=== PATIENT | male | born 1980 | race African-American/Black ===

== ENCOUNTER 2017-07-11 20:05 | Emergency (ER) | payer SELFPAY ==
[~2017-07-11] VITALS: Ht 170.2 cm; Wt 63.5 kg
[2017-07-11 20:25] VITALS: BP 131/91
--- NOTE | 2017-07-11 20:25 | NUR ---
PT C/O ON AND OFF CHEST PAIN X 3 WEEKS, NAD NOTED, VSS, RESP EVEN AND UNLABORED, WAITING FOR MD DAVIAN.
== END 2017-07-11 21:22 | disposition home or self-care (01) ==
LOC: ER 20:12
DX: R07.89 Other chest pain (principal); F12.10 Cannabis abuse, uncomplicated; F17.210 Nicotine dependence, cigarettes, uncomplicated
CPT/HCPCS: 93005; 99283; 99406; A4606; Z7610

== ENCOUNTER 2017-08-02 11:24 | Emergency (ER) | payer SELFPAY ==
[~2017-08-02] VITALS: Ht 172.7 cm; Wt 72.6 kg
[2017-08-02 11:30] VITALS: BP 133/75
== END 2017-08-02 12:20 | disposition home or self-care (01) ==
LOC: ER 11:26
DX: S56.108A Unspecified injury of flexor muscle, fascia and tendon of left little finger at forearm level, initial encounter (principal); X58.XXXA Exposure to other specified factors, initial encounter; Y93.89 Activity, other specified; Y92.89 Other specified places as the place of occurrence of the external cause; Y99.8 Other external cause status
CPT/HCPCS: 29130; 99283; A4606; Z7610